=== PATIENT | female | born 1965 | race Caucasian/White ===

== ENCOUNTER → 2017-02-17 | Outpatient (CLI) | payer OTHER ==
[~2017-02-17] MED LIST: CYAN10005 PO; MULT1TAB79 PO
== END | disposition home or self-care (01) ==
LOC: C.LABBFT 15:16
PROVIDERS: ATTEND Nurse Practitioner
DX: J02.9 Acute pharyngitis, unspecified (principal); R53.83 Other fatigue

== ENCOUNTER → 2017-03-03 | Outpatient (CLI) | payer OTHER | END | disposition home or self-care (01) | LOC: C.MAMM 13:36 | DX: Z12.31 Encounter for screening mammogram for malignant neoplasm of breast (principal) ==